=== PATIENT | male | born 1985 | race Two or more races ===

== ENCOUNTER 2020-03-07 20:20 | Emergency (ER) | payer SELFPAY ==
[~2020-03-07] VITALS: Ht 180.3 cm; Wt 99.8 kg
[2020-03-07 21:19] LABS: Basophils # (auto) 0.1 10 ^3/uL (0-0.2); Basophils % (auto) 0.9 % (0.0-2.0); Eosinophils # (auto) 0.5 10 ^3/uL (0-0.8); Eosinophils % (auto) 3.9 % (0.0-7.0); Hematocrit 43.9 % (41.0-53.0); Hemoglobin 15.4 g/dL (13.5-17.5); Lymphocytes # (auto) 3.1 10 ^3/uL (0.4-5.4); Lymphocytes % (auto) 25.3 % (10.0-50.0); Mean Corpuscular Hemoglobin 29.8 pg (28.0-32.0); Monocytes % (auto) 7.8 % (0.0-12.0); Neutrophils # (auto) 7.7 10 ^3/uL (1.6-8.6); Neutrophils % (auto) 62.1 % (37.0-80.0); Nucleated Red Blood Cells % 0.1 %; Platelet Count (auto) 258 10^3/uL (140-450); Red Blood Cells 5.17 10^6/uL (4.5-5.90); Red Cell Distribution Width 13.3 % (11.8-14.3); White Blood Cell 12.4 10^3/uL (4.4-10.8)
[2020-03-07 21:25] LABS: Urine Bacteria NONE SEEN /hpf (None Seen); Urine Blood Negative /uL (Negative); Urine Specific Gravity 1.028 (1.001-1.035); Urine WBC <1 /hpf (0 - 3)
[2020-03-07 21:36] LABS: Partial Thromboplastin Time 25.9 sec (23.0-31.2)
[2020-03-07 21:39] LABS: Alanine Aminotransferase 101 U/L (16-61); Albumin 4.2 g/dL (3.4-5.0); Anion Gap 4 (5-15); Aspartate Aminotransferase 28 U/L (15-37); BUN/Creatinine Ratio 10.3; Blood Urea Nitrogen 17 mg/dL (7-18); Calcium 8.5 mg/dL (8.5-10.1); Carbon Dioxide 28 mmol/L (21-32); Chloride 105 mmol/L (98-107); GFR African American 62 mL/min; GFR Non-African American 52 mL/min; Glucose 95 mg/dL (74-106); Potassium 3.6 mmol/L (3.5-5.1); Sodium 137 mmol/L (136-145)
[2020-03-07 21:44] LABS: Alkaline Phosphatase 67 U/L (45-117); Bilirubin, Total 0.4 mg/dL (0.2-1.0)
[2020-03-07 23:00] VITALS: BP 125/76
== END 2020-03-07 23:12 | disposition home or self-care (01) ==
LOC: ER 20:20
DX: K04.7 Periapical abscess without sinus (principal)
CPT/HCPCS: 36415; 80053; 81001; 84484; 85025; 85610; 85730; 93005